=== PATIENT | female | born 2005 | race African-American/Black ===

== ENCOUNTER 2023-06-16 12:35 | Emergency (ER) | payer OTHER ==
[~2023-06-16] VITALS: Ht 165.1 cm; Wt 103.1 kg
[2023-06-16 14:19] LABS: BASO # 0.1 10^3/uL (0.0-0.2); BASO % 0.7 % (0.0-1.0); EOS # 0.2 10^3/uL (0.0-0.5); EOS % 2.4 % (0.0-3.0); HEMATOCRIT 36.8 % (36.0-47.0); HEMOGLOBIN 11.9 g/dl (12.0-15.5); LYMPH # 2.8 10^3/uL (1.5-5.0); LYMPH % 41.7 % (24.0-44.0); MEAN CORPUSCULAR HEMOGLOBIN 27.7 pg (27.0-33.0); MEAN CORPUSCULAR HGB CONC 32.3 g/dl (32.0-36.5); MEAN CORPUSCULAR VOLUME 85.6 fl (80.0-96.0); MONO # 0.4 10^3/uL (0.0-0.8); MONO % 5.7 % (2.0-8.0); NEUTROPHILS # 3.3 10^3/uL (1.5-8.5); NEUTROPHILS % 49.2 % (36.0-66.0); PLATELET COUNT, AUTOMATED 313 10^3/uL (150-450); WHITE BLOOD COUNT 6.7 10^3/uL (4.0-10.0)
[2023-06-16 14:51] LABS: BLOOD UREA NITROGEN 11 MG/DL (9-23); CALCIUM LEVEL 9.7 MG/DL (8.5-10.1); CARBON DIOXIDE LEVEL 28 MMOL/L (20-31); CHLORIDE LEVEL 105 MMOL/L (98-107); CK-MB VALUE MASS < 1.0 NG/ML (<3.6); CREATININE FOR GFR 0.67 MG/DL (0.55-1.30); GLUCOSE, FASTING 82 MG/DL (60-100); SODIUM LEVEL 137 MMOL/L (136-145)
[2023-06-16 14:52] LABS: THYROID STIMULATING HORMONE 1.847 uIU/ML (0.48-4.17)
[2023-06-16 14:53] LABS: FREE T4 1.11 NG/DL (0.83-1.43); HCG, SERUM QUALITATIVE NEGATIVE (NEGATIVE)
[2023-06-16 14:55] LABS: CPK CREATINE PHOSPHOKINASE 83 U/L (34-145)
[2023-06-16] MEDS ORDERED: NAPR-837 PO (15:41)
[2023-06-16] MEDS ORDERED: LOTR1CRE12 TOP (15:41)
[2023-06-16 15:50] VITALS: BP 123/81; TEMP 97.4; O2SAT 98
== END 2023-06-16 15:56 | disposition home or self-care (01) ==
LOC: M ED 12:35
DX: M94.0 Chondrocostal junction syndrome [Tietze] (principal); B35.4 Tinea corporis; N93.8 Other specified abnormal uterine and vaginal bleeding